=== PATIENT | female | born 1945 | race Caucasian/White ===

== ENCOUNTER 2017-02-23 04:21 | Observation (INO) | payer BC ==
--- NOTE | ~2017-02-23 | HP ---
History And Physical [place] [address] [facility] [place]. [address] NAME: JENIFER KELSEY : 43 STATUS : ADM Bill PAT#: [id number] AGE: 71 ADM/REG DATE : 02/23/17 MR#: [id number] REPORT SERV DATE: 02/23/17 DICTATED BY: STEWART KIRK DATE: 02/23/17 REPORT STATUS : Draft TRANSCRIBED BY: MODL DATE: 02/23/17 DATE OF ADMISSION: 02/23/2017 CHIEF COMPLAINT: Chest tightness. HISTORY OF PRESENT ILLNESS: A very pleasant 71-year-old white female with no known history of CAD, states that on 02/22/2017 around 2230 hours, she developed midsternal chest tightness that did not radiate elsewhere. She reports this as a solitary event. She reports associated shortness of breath and nausea. She denies any diaphoresis, dizziness, or belching. At its most intense, she rated the chest pain as 5/10, at time of interview in the [facility], she is pain-free. She states the episode lasted several hours in duration and was relieved with nitroglycerin sublingual provided by the emergency room. She denies any exertional component. No stressful argumentative or confrontational event. The patient denies any personal history of myocardial infarction, stroke, DVT, or pulmonary embolus. The patient denies any recent fever or chills, no palpitations, no syncopal episodes. Denies PND or orthopnea. PAST MEDICAL HISTORY: 1. Hypertension. 2. Denies dyslipidemia or diabetes. 3. Hypothyroid, on replacement. 4. Positive family history for early CAD. PAST SURGICAL HISTORY: 1. Bilateral knee replacement. 2. Cholecystectomy. 3. Bilateral cataract repair. SOCIAL HISTORY: She is . She has two sons. She is retired. She does exercises in a recliner daily. Denies tobacco, alcohol, or illicits. FAMILY HISTORY: Father of a heart attack at 82. Mother of a heart attack at 67. REVIEW OF SYSTEMS: A 14-point review of systems performed, significant for HPI. No other contributory diagnoses identified. ALLERGIES: NO KNOWN DRUG ALLERGIES. HOME MEDICATIONS: Ibuprofen 800 mg four times daily p.r.n., Synthroid 88 mcg daily, lisinopril 5 mg daily. PHYSICAL EXAMINATION: VITAL SIGNS: Bilateral blood pressures on arrival, right 174/77, left 154/73, pulse 75, respirations 16, temperature 97.8, O2 saturation 96% on room air, height 5 feet 2 inches, History And Physical [address] [address] NAME: JENIFER KELSEY : [birth year] STATUS : ADM Bill PAT#: [id number] AGE: 71 ADM/REG DATE : 02/23/17 MR#: [id number] REPORT SERV DATE: 02/23/17 DICTATED BY: STEWART KIRK DATE: 02/23/17 REPORT STATUS : Draft TRANSCRIBED BY: MODL DATE: 02/23/17 weight 178 pounds, BMI 32.6. GENERAL: Cooperative, in no apparent distress. HEENT: Pupils 2 mm, sclera nonicteric. Nares patent. Moist mucous membranes. No xanthelasma. NECK: Trachea midline, no thyromegaly. No JVD. No bruits. LYMPH: No cervical lymphadenopathy. No supraclavicular lymphadenopathy. RESPIRATORY: Unlabored respirations. Breath sounds clear bilaterally to posterior auscultation. No wheezes or rhonchi. CARDIOVASCULAR: Regular rate. No rub or gallop appreciated. 1/6 subtle murmur, best audible left sternal border. EXTREMITIES: Without edema. Pulses 2+ bilaterally. ABDOMEN: Obese, soft, nontender, nondistended, normal bowel sounds auscultated throughout. No organomegaly. SKIN: Warm, dry extremities. No pallor, or cyanosis. PSYCHIATRIC: Appropriate affect. Alert, oriented x3. LABORATORY DATA: Troponin less than 0.02 x2, third pending. Potassium 3.6, BUN 13, creatinine 0.76, glucose 102, magnesium 2.4. WBC 7.8, hemoglobin 10.5, hematocrit 32.3, platelet count 310,000. EKG, sinus rhythm, occasional PVC, PRWP, nonspecific ST waves. ASSESSMENT AND PLAN: 1. Substernal chest pain in a patient with risk factors of hypertension and positive family history for early coronary artery disease. The patient has been observed in the [facility]. Two sets of cardiac markers negative. EKG appears stable. The patient will be held n.p.o. after midnight for MPI in the morning and discharged home if low risk, no ischemia. If anything suggestive of ischemia, Cardiology referral will be initiated. Otherwise, the patient be asked to follow up her PCP as previously scheduled on 03/11/2017. 2. Hypertension, monitor blood pressure and continue home medications. 3. Subtle murmur. We will check echocardiogram in a.m. KATHY/SAL OSMANY Heath, VP [employer] / [id number] CC: OSMANY Heath, VP [employer]
[2017-02-23 03:33] LABS: BASOPHILS 0.6 %; BASOPHILS ABSOLUTE 0.05 10/3/uL (0.0-0.16); EOSINOPHILS 3.7 %; EOSINOPHILS ABSOLUTE 0.29 10/3/uL (0.0-0.53); HEMATOCRIT 32.3 % (36.0-48.0); HEMOGLOBIN 10.5 g/dL (12.0-16.0); IMMATURE GRANULOCYTES 0.3 %; IMMATURE GRANULOCYTES ABSOLUTE 0.02 10/3/uL (0.0-0.11); LYMPHOCYTES 24.3 %; LYMPHOCYTES ABSOLUTE 1.88 10/3/uL (0.67-4.30); MEAN CORPUS HGB CONC 32.5 g/dL (32.0-36.0); MEAN CORPUSCULAR HEMOGLOB 25.8 pg (26.0-34.0); MEAN CORPUSCULAR VOLUME 79.4 fL (80-100); MEAN PLATELET VOLUME 7.6 fL (9.2-13.0); MONOCYTES 7.1 %; MONOCYTES ABSOLUTE 0.55 10/3/uL (0.21-1.20); NEUTROPHILS ABSOLUTE 4.96 10/3/uL (2.02-8.40); PLATELET COUNT 310 10/3/uL (150-400); RED CELL COUNT 4.07 10/6/uL (4.0-5.6); WHITE BLOOD CELLS 7.8 10/3/uL (4.5-10.5)
[2017-02-23 03:42] LABS: ER CBC TAT 0 Hrs 03 Mins; MANUAL DIFF NO %
[2017-02-23 03:46] LABS: PROTIME (NOT ORD) 13.1 SEC (12.0-14.5)
[2017-02-23 04:00] LABS: BUN (BLOOD UREA NITROGEN) 13 MG/DL (6-23); CALCIUM, SERUM 8.8 MG/DL (8.5-10.4); CHEST PAIN PROFILE TAT 0 Hrs 30 Mins; CHLORIDE, SERUM 107 MMOL/L (96-112); CO2 (CARBON DIOXIDE) 32 MMOL/L (24-34); CREATININE 0.76 MG/DL (0.55-1.02); GFR AFRICAN AMERICAN 91 ML/MIN (>=60); GFR NON AFRICAN AMERICAN 78 ML/MIN (>=60); POTASSIUM, SERUM 3.6 MMOL/L (3.5-5.3); SODIUM, SERUM 145 MMOL/L (135-148); TROPONIN I <0.02 NG/ML (<0.05)
[2017-02-23 04:01] LABS: GLUCOSE, SERUM 102 MG/DL (60-99)
[~2017-02-23 04:21] MED LIST: ENDOCET1 TAB PO; SYN88 PO
[2017-02-23] MEDS ORDERED: PRIN5 PO (05:29)
[2017-02-23] MEDS ORDERED: IBU800 PO (05:30)
[2017-02-24 07:51] LABS: BUN (BLOOD UREA NITROGEN) 15 MG/DL (6-23); CALCIUM, SERUM 9.2 MG/DL (8.5-10.4); CHLORIDE, SERUM 107 MMOL/L (96-112); CO2 (CARBON DIOXIDE) 31 MMOL/L (24-34); CREATININE 0.86 MG/DL (0.55-1.02); GFR AFRICAN AMERICAN 78 ML/MIN (>=60); GFR NON AFRICAN AMERICAN 67 ML/MIN (>=60); GLUCOSE, SERUM 110 MG/DL (60-99); POTASSIUM, SERUM 4.1 MMOL/L (3.5-5.3); SODIUM, SERUM 142 MMOL/L (135-148)
== END 2017-02-24 15:11 | disposition home or self-care (01) ==
LOC: ER 04:21 → CDU1 04:36 → CDU2 12:43
PROVIDERS: Clinical Nurse Specialist; Specialist
DX: R07.2 Precordial pain (principal); I10 Essential (primary) hypertension; E03.9 Hypothyroidism, unspecified; Z82.49 Family history of ischemic heart disease and other diseases of the circulatory system; Z96.653 Presence of artificial knee joint, bilateral; Z90.49 Acquired absence of other specified parts of digestive tract; Z98.41 Cataract extraction status, right eye; Z98.42 Cataract extraction status, left eye; Z79.1 Long term (current) use of non-steroidal anti-inflammatories (NSAID); Z79.899 Other long term (current) drug therapy; Z98.890 Other specified postprocedural states
CPT/HCPCS: 71020; 78452; 80048; 83735; 84484; 85025; 85610; 85730; 93005; 93017; 93306; 99285; A9270-GY; A9502; G0378